=== PATIENT | female | born 1995 | race Caucasian/White ===

== ENCOUNTER 2022-04-13 15:19 | Emergency (ER) | payer BC, OTHER ==
[2022-04-13] MEDS ORDERED: cefTRIAXone 1 GM, Lidocaine 1% 2.1 ML IM ONE ×2 (16:28)
== END 2022-04-13 15:45 | disposition home or self-care (01) ==
LOC: VM.ED 15:19
DX: A08.4 Viral intestinal infection, unspecified (principal); Z88.1 Allergy status to other antibiotic agents; Z88.2 Allergy status to sulfonamides
CPT/HCPCS: 96372; 99283

== ENCOUNTER 2022-05-03 11:38 | Emergency (ER) | payer BC, MEDICAID ==
[2022-05-03 12:26] LABS: CHLORIDE,CL 104 mmol/L (98-107); SODIUM,NA 139 mmol/L (136-145)
[2022-05-03 12:29] LABS: ANION GAP 12.2 mmol/L (5-15); ESTIMATED GFR 128 mL/min (>=60)
[2022-05-03] MEDS ORDERED: Take Home: Nitrofurantoin Monohydrate/Macrocrystalline 100 MG, 2 Cap Pack PO ONE (12:43)
== END 2022-05-03 13:23 | disposition home or self-care (01) ==
LOC: VM.ED 11:38
DX: R55 Syncope and collapse (principal); D64.9 Anemia, unspecified; F17.210 Nicotine dependence, cigarettes, uncomplicated; Z88.1 Allergy status to other antibiotic agents; Z88.2 Allergy status to sulfonamides
CPT/HCPCS: 36415; 80053; 81001; 81025; 82728; 85025; 86140; 87086; 87088; 87186; 93005; 93010; 99284; A9270-GY

== ENCOUNTER 2023-06-23 20:33 | Emergency (ER) | payer MEDICAID ==
[2023-06-23 21:04] VITALS: BP 153/90; PULSE 95
== END 2023-06-23 21:10 | disposition home or self-care (01) ==
LOC: VM.ED 20:33
DX: M25.561 Pain in right knee (principal); Z79.899 Other long term (current) drug therapy; Z88.1 Allergy status to other antibiotic agents; Z88.2 Allergy status to sulfonamides
CPT/HCPCS: 99283